=== PATIENT | female | born 1945 | race Hispanic/Latino ===

== ENCOUNTER 2017-05-22 15:21 | Emergency (ER) | payer MEDICARE ==
[2017-05-22] MEDS ORDERED: ASPIRIN 325 MG TAB PO ONE (16:00)
[2017-05-22] MEDS ORDERED: PANTOPRAZOLE 40 MG 10ML VIAL IV ONE (16:00)
[2017-05-22] MEDS ORDERED: XYZAL5 MG PO (17:02)
[2017-05-22] MEDS ORDERED: PROAIR HFA INH8.5 GM INH (17:02)
[2017-05-22] MEDS ORDERED: BROMFED DM COU118 ML PO (17:02)
[2017-05-22 17:22] VITALS: BP 132/78
== END 2017-05-22 17:20 | disposition home or self-care (01) ==
LOC: FSED 15:21
DX: J00 Acute nasopharyngitis [common cold] (principal); B34.9 Viral infection, unspecified; I10 Essential (primary) hypertension; E11.9 Type 2 diabetes mellitus without complications; E78.5 Hyperlipidemia, unspecified
CPT/HCPCS: 80053; 80076; 81003; 84484; 85025; 85379; 93005; 99284

== ENCOUNTER 2018-10-02 07:55 | Emergency (ER) | payer MEDICARE ==
[~2018-10-02] VITALS: Ht 149.9 cm; Wt 90.3 kg
[~2018-10-02 07:55] MED LIST: BROMFED DM COU118 ML PO; PROAIR HFA INH8.5 GM INH; XYZAL5 MG PO
--- NOTE | 2018-10-02 09:08 | Diagnostic Imaging Report ---
History: Dizziness Comparison studies: None Technique: Axial images were obtained from the skull base to the vertex. Coronal and sagittal reconstructions obtained from the axial data. Dose modulation, iterative reconstruction, and/or weight based adjustment of the mA/kV was utilized to reduce the radiation dose to as low as reasonably achievable. Intravenous contrast: None Findings: Scalp/skull: No abnormalities. No fractures, blastic or lytic lesions. Extra-axial spaces: No masses. No fluid collections. Brain sulci: Mildly prominent. Ventricles: Mild compensatory dilatation. No hydrocephalus. Parenchyma: No abnormal densities. No masses, hemorrhage, acute or chronic cortical vascular insults. Sellar/suprasellar region: No abnormalities Craniocervical junction: Patent foramen magnum. No Chiari one malformation. Incidental findings: Subtle atherosclerotic calcifications in the carotid siphons. IMPRESSION: No intracranial abnormalities. Signed by: Dr. Frank Levy M.D. on 10/02/2018 9:04 AM
[2018-10-02] MEDS: MECLIZINE HCL 12.5 MG TAB PO SCH (09:15)
[2018-10-02] MEDS: ONDANSETRON HCL 4 MG ORAL DISINTEGRATING TAB PO ONE (09:15)
--- NOTE | 2018-10-02 09:17 | Diagnostic Imaging Report ---
EXAMINATION: PA and lateral views of the chest. COMPARISON: None CLINICAL HISTORY: Vomiting and dizziness DISCUSSION: Lines/tubes: None. Lungs: The lungs are well inflated and grossly clear. There is no evidence of pneumonia or pulmonary edema. Pleura: There is no pleural effusion or pneumothorax. Heart and mediastinum: Enlarged cardiac silhouette Pulmonary vasculature is normal. Bones and soft tissues: No acute bony abnormalities. Degenerative changes in the thoracic spine IMPRESSION: Enlarged cardiac silhouette, without acute cardiac pulmonary abnormalities. Signed by: Dr. Ramón Henry M.D. on 10/02/2018 9:13 AM
[2018-10-02] MEDS ORDERED: ONDANSETRON HCL 4 MG ORAL DISINTEGRATING TAB ONE (09:21)
[2018-10-02] MEDS ORDERED: MECLIZINE HCL 12.5 MG TAB ONE (09:21)
[2018-10-02 09:39] VITALS: BP 157/70
== END 2018-10-02 09:39 | disposition home or self-care (01) ==
LOC: FSED 07:55
DX: H81.11 Benign paroxysmal vertigo, right ear (principal); I10 Essential (primary) hypertension; E78.5 Hyperlipidemia, unspecified; E11.9 Type 2 diabetes mellitus without complications
CPT/HCPCS: 70450; 71046; 80053; 81003; 82553; 84484; 85025; 93005; 99284; J8597; Q0162

== ENCOUNTER 2019-09-20 00:21 | Emergency (ER) | payer MEDICARE ==
[~2019-09-20] VITALS: Ht 149.9 cm; Wt 90.3 kg
[2019-09-20] MEDS ORDERED: SODIUM CHLORIDE 0.9% 1000ML 1,000 ML IV STA (00:46)
--- NOTE | 2019-09-20 00:51 | Emergency Department Note ---
History of Present Illnes History of Present Illness Chief Complaint: General Medicine Complaints History of Present Illness This is a 73 year old female, C/O FEELING REALLY NAUSEOUS, STATES SHE HAD SOME CONSTIPATION BUT SHE CLEARED UP 3 DAYS AGO AFTER TAKING SOME MILK OR MAGNESIUM ON WEDNESDAY, NOW MAIN CONCERN IS NAUSEA, PT STATES WAS POSITIVE FOR COVID 2 WEEKS AGO AND TESTED NEGATIVE 3 DAYS AGO AFTER HER 14 DAY QUARANTINE TIME. . Historian: Patient Arrival Mode: Car Rock Climbing Instructor Required: No Onset (how long ago): day(s) Radiation: Reports non-radiation Severity: moderate Onset quality: gradual Timing of current episode: intermittent Progression: waxing and waning Context: Reports recent illness Relieving factors: none Exacerbating factors: none Associated symptoms: Reports loss of appetite, Reports nausea/vomiting Treatments prior to arrival: none Past Medical/Family History Physician Review I have reviewed the patient's past medical and family history. Any updates have been documented here. Past Medical History Recent Fever: No Clinical Suspicion of Infectio: No New/Unexplained Change in Ment: No Past Medical History: Hypertension, Diabetes, Hyperlipedemia Other Medical History: MORBID OBESITY Past Surgical History: Social History Smoking Cessation: Never Smoker Counseling Performed: No Alcohol Use: None Any Illegal Drug Use: No Other Last Tetanus: U Any Pre-Existing Lines (PICC,: No Review of Systems Review of Systems Constitutional: Reports no symptoms EENTM: Reports no symptoms Cardiovascular: Reports no symptoms Respiratory: Reports no symptoms Gastrointestinal: Reports as per HPI, Reports constipation, Reports nausea Genitourinary: Reports no symptoms Musculoskeletal: Reports no symptoms Integumentary: Reports no symptoms Neurological: Reports no symptoms Psychological: Reports no symptoms Endocrine: Reports no symptoms Hematological/Lymphatic: Reports no symptoms Physical Exam Related Data Allergies: Coded Allergies: No Known Allergies (Unverified , 05/22/17) Triage Vital Signs Vital Signs Date Time Temp Pulse Resp B/P (MAP) Pulse Ox O2 Delivery O2 Flow Rate FiO2 09/20/19 00:35 97.7 94 18 180/69 98 Room Air Physical Exam CONSTITUTIONAL Constitutional: Present well-developed, Present well-nourished, Present obese HENT HENT: Present normocephalic, Present atraumatic, Present oropharynx clear/moist, Present nose normal HENT L/R: Present left ext ear normal, Present right ext ear normal EYES Eyes: Reports PERRL, Reports conjunctivae normal NECK Neck: Present ROM normal PULMONARY Pulmonary: Present effort normal, Present breath sounds normal CARDIOVASCULAR Cardiovascular: Present regular rhythm, Present heart sounds normal, Present capillary refill normal, Present normal rate GASTROINTESTINAL Abdominal: Present soft, Present nontender, Present bowel sounds normal, Present other (obese) GENITOURINARY Genitourinary: Present exam deferred SKIN Skin: Present warm, Present dry MUSCULOSKELETAL Musculoskeletal: Present ROM normal NEUROLOGICAL Neurological: Present alert, Present oriented x 3, Present no gross motor or sensory deficits PSYCHOLOGICAL Psychological: Present mood/affect normal, Present judgement normal Results Laboratory Lab results reviewed: Yes Laboratory comments unremarkable Imaging Imaging results reviewed: Yes Imaging Comments COVID 19 pneumonia, expected (pt has been recovering from COVID Diagnostics Tests Diagnostic test(s) reviewed: Yes Assessment & Plan Medical Decision Making MDM gerd, ACS, sbo, ileus Reassessment Reassessment time: 01:44 Reassessment no longer n/v Assessment & Plan Final Impression: (1) GERD without esophagitis (2) Nausea Last Vital Signs Date Time Temp Pulse Resp B/P (MAP) Pulse Ox O2 Delivery O2 Flow Rate FiO2 09/20/19 00:35 97.7 94 18 180/69 98 Room Air Home Meds Active Scripts Albuterol Sulf* (PROAIR HFA INHALER*) 8.5 Gm Inh, 2 INH INH Q6H PRN for WHEEZING, #1 INH 0 Refills 2 puffs by mouth Q4-6hr PRN for cough/wheezing Prov:BRYAN LAL MD 05/22/17 Levocetirizine Dihydrochloride (XYZAL) 5 Mg Tablet, 1 TAB PO DAILY, #30 TAB 0 Refills Prov:BRYAN LAL MD 05/22/17 D-Methorphan Hb/P-Epd Hcl/Bpm (BROMFED DM COUGH SYRUP) 118 Ml Syrup, 10 ML PO Q4HR PRN for COUGH, #250 ML 0 Refills Prov:BRYAN LAL MD 05/22/17 Medications in the ED Ondansetron HCl 8 mg ONCE ONCE IV ; Start 09/20/19 at 01:00; Stop 09/20/19 at 01:01; Status UNV Famotidine 20 mg ONCE ONCE IV ; Start 09/20/19 at 01:00; Stop 09/20/19 at 01:01; Status UNV Sodium Chloride 1,000 ml @ 0 mls/hr Q0M STAT IV ; Start 09/20/19 at 00:46; Stop 09/20/19 at 00:48; Status DC Physician Attestation Provider Attestation d/c meds: al nascimento Maloox LUU, NGUYEN T MD Sep 20, 2019 00:51
[2019-09-20] MEDS ORDERED: SODIUM CHLORIDE 0.9% 1000ML 1,000 ML ONE (01:00)
[2019-09-20] MEDS ORDERED: FAMOTIDINE 20 MG/2 ML VIAL IV ONE ×2 (01:00)
[2019-09-20] MEDS ORDERED: ONDANSETRON HCL INJ 2MG/ML 2ML 2 MG/ML VIAL ONE (01:00)
[2019-09-20] MEDS ORDERED: ONDANSETRON HCL INJ 2MG/ML 2ML 2 MG/ML VIAL IV ONE (01:00)
--- OUTSIDE RECORDS SUMMARY | 2019-09-20 01:24 | XMS REPORT | Continuity of Care Document ---
Author Author [facility] Organization [facility] Address [address] [place] [address] Phone Unavailable Care Team Providers Care Assistant Director Of Admissions Name Role Phone BEAU HAND PCP SAUNDRA RODRÍGUEZ Unavailable Payers Payer Name Policy Type Policy Number Effective Date Expiration Date yanni [employer] Medicare Advantage [id number] [facility] Problems This patient has no known problems. Allergies, Adverse Reactions, Alerts This patient has no known allergies or adverse reactions. Medications Ordered Medication Name Filled Medication Name Start Date Stop Da te Current Medication? Ordering Clinician Indication Dosage Frequency Signature (SIG) Comments Components Source Albuterol Sulfate (Proair Hfa Inhaler*) 8.5 Gm Inh Alb uterol Sulfate (Proair Hfa Inhaler*) 8.5 Gm Inh 2017-05-22 00:00:00 Yes Mark Olmedo Md 2 Every 6 Hours as needed for Wheezing [facility] D-Methorphan Hb/P-Epd Hcl/Bpm (Bromfed Dm Cough Syrup) 118 Ml Syrup D-Methorphan Hb/P-Epd Hcl/Bpm (Bromfed Dm Cough Syrup) 118 Ml Syrup 2017-05-22 00:00:00 Yes Mark Olmedo Md 10 Every 4 Hours as needed for Cough [facility] Levocetirizine Dihydrochloride (Xyzal) 5 Mg Tablet Lev ocetirizine Dihydrochloride (Xyzal) 5 Mg Tablet 2017-05-22 00:00:00 Yes Mark Olmedo Md 1 Daily [facility] Procedures This patient has no known procedures. Encounters Start Date/Time End Date/Time Encounter Type Admission Type Attendi [facility] Care Department Encounter ID Source 2018-10-02 07:55:00 2018-10-02 09:39:00 Departed Emergency Room 1 SAUNDRA RODRÍGUEZ [facility] [id number] [facility] 2017-05-22 15:21:00 2017-05-22 17:20:00 Departed Emergency Room [facility] [id number] [facility] Results Test Description Test Time Test Comments Results Result Comments Source CXR 2 [facility] 2018-10-02 09:13:00 [facility] [address] [place] [address] Patient Name: DENNIS PEREZ MR #: [id number] : 1945 Age/Sex: 72/F Req #: [id number] Adm Physician: Ordered by: SAUNDRA RODRÍGUEZ MD Report #: [id number] Location: [facility] Room/Bed: Procedure: [id number] HOPD/CXR 2 [facility] Exam Date: 10/02/18 Exam Time: 0845 REPORT STATUS: Signed EXAMINATION: PA and lateral views of the chest. COMPARISON: None CLINICAL HISTORY: Vomiting and dizziness DISCUSSION: Lines/tubes: None. Lungs: The lungs are well inflated and grossly clear. There is no evidence of pneumonia or pulmonary edema. Pleura: There is no pleural effusion or pneumothorax. Heart and mediastinum: Enlarged cardiac silhouette Pulmonary vasculature is normal. Bones and soft tissues: No acute bony abnormalities. Degenerative changes in the thoracic spine IMPRESSION: Enlarged cardiac silhouette, without acute cardiac pulmonary abnormalities. Signed by: Dr. Charleen Henry M.D. on 10/02/2018 9:13 AM Dictated By: CHARLEEN HENRY MD Transcribed By: LORE on 10/02/18912 COPY TO: SAUNDRA RODRÍGUEZ MD CT BRAIN WO-HOPD 2018-10-02 09:02:00 [place] [address] Patient Name: DENNIS PEREZ MR #: [id number] : 1945 Age/Sex: 72/F Req #: [id number] Adm Physician: Ordered by: SAUNDRA RODRÍGUEZ MD Report #: [id number] Location: [facility] Room/Bed: Procedure: [id number] HOPD/CT BRAIN WO-HOPD Exam Date: 10/02/18 Exam Time: 0840 REPORT STATUS: Signed History: Dizziness Comparison studies: None Technique: Axial images were obtained from the skull base to the vertex. Coronal and sagittal reconstructions obtained from the axial data. Dose modulation, iterative reconstruction, and/or weight based adjustment of the mA/kV was utilized to reduce the radiation dose to as low as reasonably achievable. Intravenous contrast: None Findings: Scalp/skull: No abnormalities. No fractures, blastic or lytic lesions. Extra-axial spaces: No masses. No fluid collections. Brain sulci: Mildly prominent. Ventricles: Mild compensatory dilatation. No hydrocephalus. Parenchyma: No abnormal densities. No masses, hemorrhage, acute or chronic cortical vascular insults. Sellar/suprasellar region: No abnormalities Craniocervical junction: Patent foramen magnum. No Chiari one malformation. Incidental findings: Subtle atherosclerotic calcifications in the carotid siphons. IMPRESSION: No intracranial abnormalities. Signed by: Dr. Frank Levy M.D. on 10/02/2018 9:04 AM Dictated By: FRANK LEVY MD, MD 3 Transcribed By: LORE on 10/02/18903 COPY TO: SAUNDRA RODRÍGUEZ MD
--- NOTE | 2019-09-20 01:42 | Diagnostic Imaging Report ---
EXAM: CT Abdomen and Pelvis WITHOUT contrast INDICATION: ^nausea ^[id number] ^[id number] COMPARISON: None. TECHNIQUE: Abdomen and pelvis were scanned utilizing a multidetector helical scanner from the lung base to the pubic symphysis without administration of IV contrast. Absence of intravenous contrast decreases sensitivity for detection of focal lesions and vascular pathology. Coronal and sagittal reformations were obtained. Routine protocol was performed. IV CONTRAST: None ORAL CONTRAST: None COMPLICATIONS: None RADIATION DOSE: Total DLP: 948.18 mGy*cm Estimated effective dose: (DLP x 0.015 x size factor) mSv CTDIvol has been reviewed. It is below the limits set by the Radiation Protocol Committee (RPC). FINDINGS: LINES and TUBES: None. LOWER THORAX: Bilateral peripheral groundglass opacities. HEPATOBILIARY: Hepatic steatosis. Otherwise, unenhanced liver is unremarkable. No biliary ductal dilation. GALLBLADDER: Large calcified gallstone. No wall thickening. SPLEEN: No splenomegaly. PANCREAS: No focal masses or ductal dilatation. ADRENALS: No adrenal nodules KIDNEYS/URETERS: No hydronephrosis. Limited for evaluation of renal parenchyma without intravenous contrast. No stones. GI TRACT: No abnormal distention, wall thickening, or evidence of bowel obstruction. There are diverticula within the colon without evidence of diverticulitis. Appendix is normal. PELVIC ORGANS/BLADDER: Unremarkable. Bilateral tubal ligation clips. LYMPH NODES: No lymphadenopathy. VESSELS: There is mild atherosclerotic disease in the aorta and major arterial branches. PERITONEUM / RETROPERITONEUM: No free air or fluid. BONES: Degenerative changes of spine. SOFT TISSUES: Partially seen bilateral breast calcifications, left greater than right. Small fat-containing periumbilical hernia. IMPRESSION: 1. Bilateral peripheral groundglass opacities in the visualized lower lung [place], concerning for multifocal atypical/viral pneumonia. 2. Hepatic steatosis. 3. Cholelithiasis without evidence of cholecystitis. 4. Colonic diverticulosis without evidence of diverticulitis. Signed by: Dr. Óscar Navas MD on 09/20/2019 1:39 AM
== END 2019-09-20 02:00 | disposition home or self-care (01) ==
LOC: FSED 01:00
DX: K21.9 Gastro-esophageal reflux disease without esophagitis (principal); R11.0 Nausea; I10 Essential (primary) hypertension; E11.9 Type 2 diabetes mellitus without complications; E78.5 Hyperlipidemia, unspecified; E66.01 Morbid (severe) obesity due to excess calories
CPT/HCPCS: 74176; 80053; 81003; 82553; 84484; 85025; 99284; J2405; J7030

== ENCOUNTER → 2020-03-01 | Outpatient (CLI) | payer MEDICARE | LOC: MAMMO 09:46 | PROVIDERS: ATTEND Internal Medicine | DX: Z12.31 Encounter for screening mammogram for malignant neoplasm of breast (principal) | CPT/HCPCS: 77067 ==

== ENCOUNTER 2020-06-25 13:15 | Emergency (ER) | payer MEDICARE ==
[~2020-06-25] VITALS: Ht 149.9 cm; Wt 90.0 kg
[2020-06-25] MEDS ORDERED: METFORMIN HCL500 M2 PO (15:04)
[2020-06-25] MEDS ORDERED: LOSARTAN-HCTZ1 EAC2 (15:04)
[2020-06-25] MEDS ORDERED: CRESTOR10 MG PO (15:04)
[2020-06-25] MEDS ORDERED: ONDANSETRON ODT4 MG PO (15:13)
== END 2020-06-25 15:21 | disposition home or self-care (01) ==
LOC: FSED 13:38
DX: R11.0 Nausea (principal); R63.0 Anorexia; T38.3X5A Adverse effect of insulin and oral hypoglycemic [antidiabetic] drugs, initial encounter; E11.65 Type 2 diabetes mellitus with hyperglycemia; I10 Essential (primary) hypertension; E78.5 Hyperlipidemia, unspecified; E66.01 Morbid (severe) obesity due to excess calories
CPT/HCPCS: 99283

== ENCOUNTER 2021-06-05 17:44 | Emergency (ER) | payer MEDICARE ==
[~2021-06-05] VITALS: Ht 149.9 cm; Wt 91.3 kg
[~2021-06-05 17:44] MED LIST changes: +CRESTOR10 MG PO; +LOSARTAN-HCTZ1 EAC2; +METFORMIN HCL500 M2 PO; +ONDANSETRON ODT4 MG PO
[2021-06-05] MEDS ORDERED: PRAVASTATIN SOD20 MG (18:10)
[2021-06-05] MEDS ORDERED: GLIPIZIDE5 MG PO (18:10)
[2021-06-05] MEDS ORDERED: ONDANSETRON ODT4 MG PO (19:22)
== END 2021-06-05 20:22 | disposition home or self-care (01) ==
LOC: FSED 18:12
DX: R11.0 Nausea (principal); E11.9 Type 2 diabetes mellitus without complications; I10 Essential (primary) hypertension; E78.5 Hyperlipidemia, unspecified; Z79.84 Long term (current) use of oral hypoglycemic drugs; Z79.899 Other long term (current) drug therapy
CPT/HCPCS: 80053; 81003; 85025; 87400; 99283

== ENCOUNTER 2022-05-03 15:44 | Emergency (ER) | payer MEDICARE ==
[~2022-05-03] VITALS: Ht 149.9 cm; Wt 92.5 kg
[~2022-05-03 15:44] MED LIST changes: +GLIPIZIDE5 MG PO; +PRAVASTATIN SOD20 MG
[2022-05-03] MEDS ORDERED: TETANUS/DIPHTHERIA TOX ADULT 0.5 ML SYR IM ONE (16:30)
[2022-05-03] MEDS ORDERED: FLONASE ALLERG9.9 ML INH (18:16)
[2022-05-03] MEDS ORDERED: CEFDINIR300 MG PO (18:16)
[2022-05-03] MEDS ORDERED: LORATADINE10 MG PO (18:16)
[2022-05-03] MEDS ORDERED: ANTIVERT25 M1 PO (18:16)
[2022-05-03 18:32] VITALS: BP 150/73
== END 2022-05-03 18:32 | disposition home or self-care (01) ==
LOC: FSED 16:32
DX: H66.91 Otitis media, unspecified, right ear (principal); R09.82 Postnasal drip; R42 Dizziness and giddiness
CPT/HCPCS: 83518; 87400; 99283

== ENCOUNTER 2024-06-21 19:55 | Emergency (ER) | payer MEDICARE ==
[~2024-06-21] VITALS: Ht 149.9 cm; Wt 86.2 kg
[~2024-06-21 19:55] MED LIST changes: +ALLEGRA ALLERGY60 MG PO; +ANTIVERT25 M1 PO; +CEFDINIR300 MG PO; +CLOTRIMAZOLE-BE15 GM TOP; +FLONASE ALLERG9.9 ML INH; +LORATADINE10 MG PO; +METOPROLOL SUCC25 MG PO; +PAPAYA ENZYME1 EACH
[2024-06-21 20:08] VITALS: PULSE 98; RESP 21; TEMP 100
[2024-06-21] MEDS: ACETAMINOPHEN 325 MG TAB PO ONE (20:35)
[2024-06-21] MEDS: SODIUM CHLORIDE 0.9% 1000ML 1,000 ML IV STA (20:36)
[2024-06-21] MEDS: KETOROLAC TROMETHAMINE 30 MG/ML VIAL IV ONE (20:36)
[2024-06-21] MEDS ORDERED: CEFDINIR300 MG PO (20:57)
[2024-06-21] MEDS ORDERED: IBUPROFEN200 MG PO (20:57)
[2024-06-21 21:01] VITALS: BP 164/72; O2SAT 96
== END 2024-06-21 21:32 | disposition home or self-care (01) ==
LOC: FSED 19:57
DX: R50.9 Fever, unspecified (principal); N12 Tubulo-interstitial nephritis, not specified as acute or chronic; R53.81 Other malaise; I10 Essential (primary) hypertension; E11.65 Type 2 diabetes mellitus with hyperglycemia; E78.5 Hyperlipidemia, unspecified; E66.01 Morbid (severe) obesity due to excess calories
CPT/HCPCS: 99283; J0696; J1885; J7030